=== PATIENT | female | born 1965 | race Caucasian/White ===

== ENCOUNTER 2022-08-12 14:43 | Inpatient (IN) | payer MEDICAID ==
[2022-08-12] MEDS ORDERED: Sodium Chloride 0.9% 1,000 ML IV SCH (15:00)
[2022-08-12 15:14] LABS: APPEARANCE,URINE CLEAR (CLEAR); BILIRUBIN,URINE NEGATIVE (NEGATIVE); COLOR,URINE YELLOW (YELLOW); GLUCOSE,URINE NEGATIVE (NEGATIVE); KETONES,URINE 15 mg/dL (NEGATIVE); LEUKOCYTE ESTERASE,URINE NEGATIVE (NEGATIVE); NITRITE,URINE NEGATIVE (NEGATIVE); OCCULT BLOOD,URINE TRACE-INTACT (NEGATIVE); PROTEIN,URINE NEGATIVE (NEGATIVE); UROBILINOGEN,URINE 0.2 EU/dL (0.2-1.0)
[2022-08-12] MEDS ORDERED: diphenhydrAMINE 50 MG/ML SDV IVPUSH PRN (15:14)
[2022-08-12] MEDS ORDERED: Naloxone 0.4 MG/ML SDV IVPUSH PRN (15:14)
[2022-08-12] MEDS ORDERED: HYDROmorphone/Normal Saline 6 MG/30 ML PCA Vial IV PRN (15:14)
[2022-08-12] MEDS ORDERED: Ondansetron 4 MG/2 ML SDV IVPUSH PRN (15:14)
[2022-08-12] MEDS ORDERED: diphenhydrAMINE 25 MG Cap PO PRN (15:14)
[2022-08-12 15:40] LABS: AMORPHOUS SEDIMENT,URINE NOT SEEN; BACTERIA,URINE RARE; EPITHELIAL CELLS,URINE NOT SEEN; MUCUS,URINE NOT SEEN; RBC,URINE 0-5 (0-5); WBC,URINE 0-5 (0-5)
[2022-08-12] MEDS: Pantoprazole 40 MG Vial IVPUSH SCH (21:13)
[2022-08-12] MEDS: Dextrose 5%-Lactated Ringers 1,000 ML IV SCH (23:27)
[2022-08-13 04:39] LABS: BASOPHILS ABSOLUTE AUTO 0.03 K/uL (0.00-0.10); BASOPHILS PERCENT AUTO 0.4 % (0.1-1.3); EOSINOPHILS ABSOLUTE AUTO 0.04 K/uL (0.00-0.40); EOSINOPHILS PERCENT AUTO 0.6 % (0.0-5.4); HEMATOCRIT 34.5 % (34.3-46.0); HEMOGLOBIN 11.6 g/dL (11.2-15.5); IMMATURE GRAN PERCENT AUTO 0.3 % (0.0-0.7); LYMPHOCYTES ABSOLUTE AUTO 1.28 K/uL (0.8-3.3); LYMPHOCYTES PERCENT AUTO 18.1 % (11.4-47.7); MEAN CORPUSCULAR HEMOGLOBIN 30.2 pg (31.6-35.5); MEAN CORPUSCULAR HGB CONC 33.6 g/dL (31.6-35.5); MEAN CORPUSCULAR VOLUME 89.8 fL (81.4-99.0); MONOCYTES ABSOLUTE AUTO 0.65 K/uL (0.20-0.90); MONOCYTES PERCENT AUTO 9.2 % (3.3-12.6); NEUTROPHILS ABSOLUTE AUTO 5.06 K/uL (1.0-7.6); NEUTROPHILS PERCENT AUTO 71.4 % (40.0-78.1); PLATELET COUNT,PLT 194 K/uL (130-375); RED BLOOD CELL COUNT 3.84 M/uL (3.77-5.24); WHITE BLOOD CELL COUNT,WBC 7.1 K/uL (3.2-11.0)
[2022-08-13 04:41] LABS: IMMATURE GRAN ABSOLUTE AUTO 0.02 K/uL (0.00-0.23)
[2022-08-13 04:59] LABS: ALANINE AMINOTRANSFERASE,ALT 19 U/L (12-78); ALBUMIN 3.1 g/dL (3.4-5.0); ALKALINE PHOSPHATASE 54 U/L (46-116); ASPARTATE AMNIOTRANSFERASE,AST 11 U/L (15-37); BILIRUBIN TOTAL 0.8 mg/dL (0.2-1.0); BLOOD UREA NITROGEN,BUN 7 mg/dL (7-18); CALCIUM 8.4 mg/dL (8.5-10.1); CARBON DIOXIDE,CO2 29 mmol/L (21-32); CHLORIDE,CL 103 mmol/L (100-108); CREATININE 0.8 mg/dL (0.6-1.0); EST CRCL DRUG DOSING (CG) 80.15 mL/min; ESTIMATED GFR 87 mL/min (>60); GLUCOSE RANDOM 118 mg/dL (74-106); MAGNESIUM 1.9 mg/dL (1.8-2.4); PHOSPHORUS 3.2 mg/dL (2.5-4.9); POTASSIUM,K 3.5 mmol/L (3.6-5.2); PROTEIN TOTAL,TP 6.2 g/dL (6.4-8.2); SODIUM,NA 137 mmol/L (140-148)
[2022-08-13 05:06] LABS: ANION GAP 8.5 mmol/L (5.0-14.0)
[2022-08-13] MEDS: Bisacodyl 5 MG Tab PO SCH ×2 (09:06→21:27)
[2022-08-13] MEDS ORDERED: [UNRECOGNIZED DRUG - OTHER] PO PRN (12:27)
[2022-08-13] MEDS: Acetaminophen 325 MG Tab PO PRN ×2 (15:18→21:27)
[2022-08-13] MEDS: Dextrose 5%-Lactated Ringers 1,000 ML IV SCH (16:19)
[2022-08-13] MEDS: HYDROmorphone 2 MG Tab PO PRN ×2 (17:14→21:29)
[2022-08-13] MEDS ORDERED: Potassium Chloride 20 MEQ Tab.ER PO ONE (18:00)
[2022-08-13] MEDS: Pantoprazole 40 MG Vial IVPUSH SCH (21:30)
[2022-08-14] MEDS: Dextrose 5%-Lactated Ringers 1,000 ML IV SCH ×3 (00:27→18:00)
[2022-08-14] MEDS: HYDROmorphone 2 MG Tab PO PRN ×4 (04:52→16:23)
[2022-08-14 05:17] LABS: BASOPHILS ABSOLUTE AUTO 0.03 K/uL (0.00-0.10); BASOPHILS PERCENT AUTO 0.4 % (0.1-1.3); EOSINOPHILS ABSOLUTE AUTO 0.12 K/uL (0.00-0.40); EOSINOPHILS PERCENT AUTO 1.6 % (0.0-5.4); HEMATOCRIT 38.2 % (34.3-46.0); HEMOGLOBIN 12.8 g/dL (11.2-15.5); IMMATURE GRAN PERCENT AUTO 0.3 % (0.0-0.7); LYMPHOCYTES ABSOLUTE AUTO 1.34 K/uL (0.8-3.3); LYMPHOCYTES PERCENT AUTO 17.8 % (11.4-47.7); MEAN CORPUSCULAR HEMOGLOBIN 30.8 pg (31.6-35.5); MEAN CORPUSCULAR HGB CONC 33.5 g/dL (31.6-35.5); MONOCYTES ABSOLUTE AUTO 0.79 K/uL (0.20-0.90); MONOCYTES PERCENT AUTO 10.5 % (3.3-12.6); NEUTROPHILS ABSOLUTE AUTO 5.24 K/uL (1.0-7.6); NEUTROPHILS PERCENT AUTO 69.4 % (40.0-78.1); PLATELET COUNT,PLT 197 K/uL (130-375); RED BLOOD CELL COUNT 4.15 M/uL (3.77-5.24); WHITE BLOOD CELL COUNT,WBC 7.5 K/uL (3.2-11.0)
[2022-08-14 05:23] LABS: IMMATURE GRAN ABSOLUTE AUTO 0.02 K/uL (0.00-0.23)
[2022-08-14 05:38] LABS: ALANINE AMINOTRANSFERASE,ALT 21 U/L (12-78); ALBUMIN 3.4 g/dL (3.4-5.0); ALKALINE PHOSPHATASE 56 U/L (46-116); ASPARTATE AMNIOTRANSFERASE,AST 16 U/L (15-37); BILIRUBIN TOTAL 0.8 mg/dL (0.2-1.0); BLOOD UREA NITROGEN,BUN 4 mg/dL (7-18); CALCIUM 8.7 mg/dL (8.5-10.1); CARBON DIOXIDE,CO2 30 mmol/L (21-32); CHLORIDE,CL 104 mmol/L (100-108); CREATININE 0.7 mg/dL (0.6-1.0); ESTIMATED GFR 102 mL/min (>60); GLUCOSE RANDOM 110 mg/dL (74-106); MAGNESIUM 1.7 mg/dL (1.8-2.4); PHOSPHORUS 2.6 mg/dL (2.5-4.9); PROTEIN TOTAL,TP 6.8 g/dL (6.4-8.2); SODIUM,NA 140 mmol/L (140-148)
[2022-08-14] MEDS: Bisacodyl 5 MG Tab PO SCH ×3 (09:35→21:05)
[2022-08-14] MEDS: Magnesium Sulfate/Water 2 GM in Premix Bag 1 BAG IV SCH ×2 (09:36→19:25)
[2022-08-14] MEDS: Potassium Phos in 0.9 % NaCl 15 MMOL in Premix Bag 1 BAG IV SCH ×6 (11:49→21:35)
[2022-08-14] MEDS: Ondansetron 4 MG/2 ML SDV IVPUSH PRN (16:19)
[2022-08-14] MEDS ORDERED: Magnesium Hydroxide 400 MG/5 ML Susp 30 ML Cup PO PRN (16:27)
[2022-08-14] MEDS ORDERED: Bisacodyl 10 MG Supp RECTAL PRN (19:22)
[2022-08-14] MEDS: Pantoprazole 40 MG Vial IVPUSH SCH (21:08)
[2022-08-15] MEDS: Potassium Phos in 0.9 % NaCl 15 MMOL in Premix Bag 1 BAG IV SCH ×2 (01:06)
[2022-08-15] MEDS ORDERED: Sodium Chloride 0.9% 10 ML SDV FLUSH ONE (01:11)
[2022-08-15] MEDS: Magnesium Sulfate/Water 2 GM in Premix Bag 1 BAG IV SCH ×5 (01:11→21:11)
[2022-08-15] MEDS ORDERED: Iopamidol 612 MG/ML 100 ML Bottle IV PRN (01:11)
[2022-08-15] MEDS ORDERED: Sodium Chloride 0.9% 50 ML IV SCH (01:15)
[2022-08-15] MEDS: Dextrose 5%-Lactated Ringers 1,000 ML IV SCH ×3 (04:22→23:26)
[2022-08-15 04:56] LABS: BASOPHILS ABSOLUTE AUTO 0.03 K/uL (0.00-0.10); BASOPHILS PERCENT AUTO 0.5 % (0.1-1.3); EOSINOPHILS ABSOLUTE AUTO 0.18 K/uL (0.00-0.40); HEMOGLOBIN 11.8 g/dL (11.2-15.5); IMMATURE GRAN PERCENT AUTO 0.2 % (0.0-0.7); LYMPHOCYTES ABSOLUTE AUTO 1.48 K/uL (0.8-3.3); LYMPHOCYTES PERCENT AUTO 24.7 % (11.4-47.7); MEAN CORPUSCULAR HGB CONC 33.7 g/dL (31.6-35.5); MEAN CORPUSCULAR VOLUME 91.9 fL (81.4-99.0); MONOCYTES ABSOLUTE AUTO 0.77 K/uL (0.20-0.90); MONOCYTES PERCENT AUTO 12.9 % (3.3-12.6); NEUTROPHILS ABSOLUTE AUTO 3.52 K/uL (1.0-7.6); NEUTROPHILS PERCENT AUTO 58.7 % (40.0-78.1); PLATELET COUNT,PLT 179 K/uL (130-375); RED BLOOD CELL COUNT 3.81 M/uL (3.77-5.24)
[2022-08-15 05:01] LABS: IMMATURE GRAN ABSOLUTE AUTO 0.01 K/uL (0.00-0.23)
[2022-08-15 05:10] LABS: A/G RATIO 0.9 (1.2-2.2); ALANINE AMINOTRANSFERASE,ALT 19 U/L (12-78); ALBUMIN 2.9 g/dL (3.4-5.0); ALKALINE PHOSPHATASE 49 U/L (46-116); ASPARTATE AMNIOTRANSFERASE,AST 16 U/L (15-37); BILIRUBIN TOTAL 0.6 mg/dL (0.2-1.0); BLOOD UREA NITROGEN,BUN 4 mg/dL (7-18); CALCIUM 7.8 mg/dL (8.5-10.1); CARBON DIOXIDE,CO2 28 mmol/L (21-32); CHLORIDE,CL 105 mmol/L (100-108); CREATININE 0.6 mg/dL (0.6-1.0); EST CRCL DRUG DOSING (CG) 106.87 mL/min; ESTIMATED GFR 106 mL/min (>60); GLUCOSE RANDOM 99 mg/dL (74-106); PHOSPHORUS 4.9 mg/dL (2.5-4.9); POTASSIUM,K 3.5 mmol/L (3.6-5.2); SODIUM,NA 140 mmol/L (140-148)
[2022-08-15 05:12] LABS: ANION GAP 10.5 mmol/L (5.0-14.0)
[2022-08-15] MEDS ORDERED: Bupivacaine 0.5% 50 ML MDV ONE (07:15)
[2022-08-15] MEDS ORDERED: Meropenem 500 MG SDV ONE (07:15)
[2022-08-15] MEDS ORDERED: Lidocaine 1% with EPINEPHrine 1:100,000 50 ML MDV ONE (07:15)
[2022-08-15] MEDS ORDERED: fentaNYL 250 MCG/5 ML SDV ONE (07:35)
[2022-08-15] MEDS ORDERED: Neostigmine Methylsulfate 1 MG/ML 5 ML Syringe ONE (07:36)
[2022-08-15] MEDS ORDERED: Succinylcholine 200 MG/10 ML MDV ONE (07:36)
[2022-08-15] MEDS ORDERED: Glycopyrrolate 0.2 MG/ML 5 ML MDV ONE (07:36)
[2022-08-15] MEDS ORDERED: Propofol 200 MG/20 ML SDV ONE (07:36)
[2022-08-15] MEDS ORDERED: Ondansetron 4 MG/2 ML SDV ONE (07:36)
[2022-08-15] MEDS ORDERED: Rocuronium 50 MG/5 ML Vial ONE (07:36)
[2022-08-15] MEDS ORDERED: Dexamethasone 4 MG/ML SDV ONE (07:36)
[2022-08-15] MEDS ORDERED: Ketamine 20 MG in Sodium Chloride 0.9% 19.8 ML IV SCH (08:00)
[2022-08-15] MEDS ORDERED: cefOXitin 2 GM in Sodium Chloride 0.9% 50 ML IV ONE (08:00)
[2022-08-15] MEDS ORDERED: Ketamine 500 MG/5 ML MDV IV SCH (08:00)
[2022-08-15] MEDS ORDERED: Ropivacaine 35 ML, dexAMETHasone 8 MG, EPINEPHrine 0.4 MG, Sodium Chloride 0.9% 42.6 ML NERVRT SCH ×4 (08:00)
[2022-08-15] MEDS ORDERED: Lactated Ringers 1,000 ML ONE (08:37)
[2022-08-15] MEDS ORDERED: fentaNYL 100 MCG/2 ML SDV ONE (08:44)
[2022-08-15] MEDS ORDERED: Naloxone 0.4 MG/ML SDV IV PRN (09:00)
[2022-08-15] MEDS ORDERED: Sugammadex Sodium 200 MG/2 ML VIAL ONE (09:00)
[2022-08-15] MEDS ORDERED: fentaNYL 50 MCG/ML SDV IM ONE (09:12)
[2022-08-15] MEDS ORDERED: Ondansetron 4 MG/2 ML SDV IVPUSH ONE (09:16)
[2022-08-15] MEDS: Ondansetron 4 MG/2 ML SDV IVPUSH PRN (09:16)
[2022-08-15] MEDS: HYDROmorphone/Normal Saline 6 MG/30 ML PCA Vial IV PRN ×2 (09:48→17:34)
[2022-08-15] MEDS: Bisacodyl 5 MG Tab PO SCH ×2 (10:46→21:06)
[2022-08-15] MEDS: Pantoprazole 40 MG Vial IVPUSH SCH (21:10)
[2022-08-16] MEDS ORDERED: Iopamidol 612 MG/ML 30 ML SDV PO ONE (03:06)
[2022-08-16] MEDS: Magnesium Sulfate/Water 2 GM in Premix Bag 1 BAG IV SCH (04:17)
[2022-08-16 05:10] LABS: BASOPHILS PERCENT AUTO 0.1 % (0.1-1.3); EOSINOPHILS PERCENT AUTO 0.1 % (0.0-5.4); HEMATOCRIT 35.5 % (34.3-46.0); HEMOGLOBIN 11.9 g/dL (11.2-15.5); IMMATURE GRAN ABSOLUTE AUTO 0.03 K/uL (0.00-0.23); IMMATURE GRAN PERCENT AUTO 0.4 % (0.0-0.7); LYMPHOCYTES ABSOLUTE AUTO 1.06 K/uL (0.8-3.3); LYMPHOCYTES PERCENT AUTO 12.5 % (11.4-47.7); MEAN CORPUSCULAR HEMOGLOBIN 31.2 pg (31.6-35.5); MEAN CORPUSCULAR HGB CONC 33.5 g/dL (31.6-35.5); MEAN CORPUSCULAR VOLUME 92.9 fL (81.4-99.0); MONOCYTES ABSOLUTE AUTO 0.95 K/uL (0.20-0.90); MONOCYTES PERCENT AUTO 11.2 % (3.3-12.6); NEUTROPHILS ABSOLUTE AUTO 6.43 K/uL (1.0-7.6); NEUTROPHILS PERCENT AUTO 75.7 % (40.0-78.1); RED BLOOD CELL COUNT 3.82 M/uL (3.77-5.24); WHITE BLOOD CELL COUNT,WBC 8.5 K/uL (3.2-11.0)
[2022-08-16 05:28] LABS: A/G RATIO 0.9 (1.2-2.2); ALANINE AMINOTRANSFERASE,ALT 19 U/L (12-78); ALBUMIN 2.8 g/dL (3.4-5.0); ALKALINE PHOSPHATASE 49 U/L (46-116); ASPARTATE AMNIOTRANSFERASE,AST 19 U/L (15-37); BILIRUBIN TOTAL 0.5 mg/dL (0.2-1.0); BLOOD UREA NITROGEN,BUN 4 mg/dL (7-18); CALCIUM 8.2 mg/dL (8.5-10.1); CARBON DIOXIDE,CO2 30 mmol/L (21-32); CHLORIDE,CL 103 mmol/L (100-108); CREATININE 0.6 mg/dL (0.6-1.0); EST CRCL DRUG DOSING (CG) 106.87 mL/min; ESTIMATED GFR 106 mL/min (>60); GLUCOSE RANDOM 118 mg/dL (74-106); MAGNESIUM 2.9 mg/dL (1.8-2.4); PHOSPHORUS 3.6 mg/dL (2.5-4.9); PRO B-TYPE NATRIUR PEPT,BNPPRO 783 pg/mL (5-125); PROTEIN TOTAL,TP 5.9 g/dL (6.4-8.2); SODIUM,NA 137 mmol/L (140-148)
[2022-08-16 05:30] LABS: BASOPHILS ABSOLUTE AUTO 0.01 K/uL (0.00-0.10); EOSINOPHILS ABSOLUTE AUTO 0.01 K/uL (0.00-0.40)
[2022-08-16] MEDS: Dextrose 5%-Lactated Ringers 1,000 ML IV SCH ×2 (07:34→15:20)
[2022-08-16] MEDS: Bisacodyl 5 MG Tab PO SCH ×2 (08:12→21:21)
[2022-08-16] MEDS: Acetaminophen 1,000 MG in Premix Bag 1 BAG IV SCH ×3 (09:56→20:12)
[2022-08-16] MEDS: Pantoprazole 40 MG Vial IVPUSH SCH (21:21)
[2022-08-17] MEDS: Dextrose 5%-Lactated Ringers 1,000 ML IV SCH ×2 (02:20→08:25)
[2022-08-17] MEDS: Acetaminophen 1,000 MG in Premix Bag 1 BAG IV SCH (02:20)
[2022-08-17] MEDS ORDERED: Meropenem 500 MG SDV ONE (06:33)
[2022-08-17] MEDS ORDERED: Bupivacaine 0.5% 50 ML MDV ONE (06:33)
[2022-08-17] MEDS ORDERED: Lidocaine 1% with EPINEPHrine 1:100,000 50 ML MDV ONE (06:34)
[2022-08-17] MEDS ORDERED: fentaNYL 100 MCG/2 ML SDV ONE (06:56)
[2022-08-17] MEDS ORDERED: Propofol 200 MG/20 ML SDV ONE ×2 (06:56→07:52)
[2022-08-17] MEDS ORDERED: Midazolam 1 MG/ML 2 ML SDV ONE (06:56)
[2022-08-17] MEDS ORDERED: Ropivacaine 35 ML, dexAMETHasone 8 MG, EPINEPHrine 0.4 MG, Sodium Chloride 0.9% 42.6 ML NERVRT SCH ×4 (07:15)
[2022-08-17] MEDS ORDERED: HYDROmorphone 2 MG Tab PO PRN (08:27)
[2022-08-17] MEDS ORDERED: Magnesium Hydroxide 400 MG/5 ML Susp 30 ML Cup PO ONE (09:00)
[2022-08-17] MEDS: Bisacodyl 5 MG Tab PO SCH ×2 (09:16→20:00)
[2022-08-17] MEDS ORDERED: Ondansetron 4 MG Tab.DIS PO PRN (12:00)
[2022-08-17] MEDS: Acetaminophen 500 MG Tab PO PRN (19:59)
[2022-08-17] MEDS ORDERED: Pantoprazole 40 MG Tab.CR PO SCH (21:00)
[2022-08-18 07:34] VITALS: BP 134/88
[2022-08-18 07:35] VITALS: PULSE 79
[2022-08-18] MEDS: Acetaminophen 500 MG Tab PO PRN (07:42)
== END 2022-08-18 08:40 | disposition home or self-care (01) | DRG 329 ==
LOC: JP.MS 14:43
PROVIDERS: ADMIT Internal Medicine; ATTEND Surgery
PROC: 0DN80ZZ Release Small Intestine, Open Approach (ICD-10-PCS; 2022-08-15)
PROC: 0DB80ZZ Excision of Small Intestine, Open Approach (ICD-10-PCS; 2022-08-15)
PROC: 0DPW0JZ Removal of Synthetic Substitute from Peritoneum, Open Approach (ICD-10-PCS; 2022-08-15)
PROC: 0WUF0JZ Supplement Abdominal Wall with Synthetic Substitute, Open Approach (ICD-10-PCS; 2022-08-15)
PROC: 0D160Z4 Bypass Stomach to Cutaneous, Open Approach (ICD-10-PCS; 2022-08-15)
PROC: 3E0M05Z Introduction of Adhesion Barrier into Peritoneal Cavity, Open Approach (ICD-10-PCS; 2022-08-15)
PROC: 0WQF0ZZ Repair Abdominal Wall, Open Approach (ICD-10-PCS; principal; 2022-08-17)
DX: K56.50 Intestinal adhesions [bands], unspecified as to partial versus complete obstruction (principal); K55.029 Acute infarction of small intestine, extent unspecified; K76.89 Other specified diseases of liver; K42.9 Umbilical hernia without obstruction or gangrene; K66.8 Other specified disorders of peritoneum; Z98.890 Other specified postprocedural states
CPT/HCPCS: 36415; 74019; 74019-26; 74177; 74240; 74240-26; 80053; 81001; 83735; 83880; 84100; 85025; A9270-GY; C9113; J0131; J0171; J0330; J0456; J0694; J1100; J1170; J2185; J2250; J2405; J2704; J2710; J2795; J3010; J3475; J3490; J7030; J7120; J7121; Q9967